=== PATIENT | female | born 1985 | race Caucasian/White ===

== ENCOUNTER 2024-03-23 11:13 | Inpatient (IN) | payer SELFPAY ==
[2024-03-23 11:27] VITALS: BMI 28.3
[2024-03-23 11:40] LABS: Basophils # 0.1 10^3/uL (0.0-0.1); Basophils % 0.8 %; Eosinophils # 0.1 10^3/uL (0.0-0.8); Eosinophils % 0.9 %; Hematocrit 46.7 % (36-47); Lymphocytes # 1.5 10^3/uL (0.8-4.8); Lymphocytes % 19.1 %; Mean Corpuscular HGB Conc 33.8 g/dL (30-55); Mean Corpuscular Volume 97.5 fl (85-98); Mean Platelet Volume 9.4 fL (7.4-10.4); Monocytes # 0.7 10^3/uL (0.2-0.9); Monocytes % 9.4 %; Neutrophils # 5.26 10^3/uL (1.8-7.7); Neutrophils % 69.3 %; Nucleated Red Blood Cells % 0 %; Platelet Count 341 10^3/cmm (157-399); Red Blood Count 4.79 10^6/uL (3.85-5.65); Red Cell Distribution Width 13.4 % (12.1-15.1); White Blood Count 7.59 10^3/uL (3.29-11.43)
--- NOTE | 2024-03-23 11:42 | W.ED.PSYCHS ---
HPI - Psych General: Chief Complaint: Psychiatric Symptoms Stated Complaint: feels of committing sucide Time Seen by Provider: 03/23/24 11:17 Source: patient Mode of arrival: ambulatory Limitations: no limitations History of Present Illness: 38-year-old female who states that she has been depressed and suicidal. She has a long history depression she never required inpatient mission states she is going through a break-up though and is having severe suicidal thoughts she has been cutting her arms as well as superficial lacerations on her arms states she has a plan to slit her wrist to kill herself. Associated symptoms: Reports depression and suicidal ideation Related Data Home Medications Medication Instructions Recorded Confirmed No Known Home Medications 03/23/24 03/23/24 Allergies Allergy/AdvReac Type Severity Reaction Status Date / Time No Known Allergies Allergy Verified 05/26/23 08:37 Review of Systems Const: Denies: fever(s), chills, body aches or change in appetite ENMT: Denies: throat pain or dental pain Card: Denies: chest pain Resp: Denies: dyspnea GI: Denies: abdominal pain, nausea, vomiting or diarrhea Musc: Denies: neck pain or back pain Skin/Breast: Denies: rash Neuro: Denies: headache(s) Psych: Reports: depression and suicidal ideation [facility] PFSH: Medical History (Updated 07/06/19 @ 14:08 by Kristie Christensen [facility]) Generalized anxiety disorder Other stimulant dependence, in remission Major depressive disorder, recurrent, moderate Social History Smoking and tobacco/nicotine status: never used tobacco/nicotine Physical Exam Const: COMMON NORMALS: no acute distress, patient oriented x3 and healthy appearing HENMT: COMMON NORMALS: normocephalic and atraumatic HEAD & SCALP: normocephalic and atraumatic Eye: COMMON NORMALS: conjunctivae normal CONJUNCTIVA: Yes conjunctivae normal Neck/C-Spine: COMMON NORMALS: full ROM and supple Chest: COMMONS NORMALS: normal inspection of the chest Resp: COMMON NORMALS: normal respiratory effort Cardio: COMMON NORMALS: regular rate, regular rhythm and No murmurs present (Cardio) RATE: regular rate RHYTHM: regular rhythm Extremity: COMMON NORMALS: normal to inspection and full ROM Neuro: COMMON NORMALS: patient oriented x3, moves all extremities and no focal motor deficits Psych: COMMON NORMALS: mental status grossly normal, Normal thought process present and cooperative MOOD & AFFECT: Yes depressed mood THOUGHT PROCESS: Normal thought process present Skin: NARRATIVE SKIN EXAM: Superficial lacerations to bilateral arms Course Vital Signs: Vital signs: Vital Signs Temperature 97.7 F 03/23/24 11:44 Pulse Rate 72 03/23/24 11:44 Respiratory Rate 18 03/23/24 11:44 Blood Pressure 124/83 03/23/24 11:44 Pulse Oximetry 96 03/23/24 11:44 Oxygen Delivery Me thod Room Air 03/23/24 11:44 MDM - Psych Medical Decision Making Patient presents here with suicidal ideations I placed her on a 96-hour hold she is medically cleared spoke to the psychiatrist will admit Medical Records I reviewed the patient's medical records. Lab Data I reviewed the patient's lab results. 03/23/24 11:35 03/23/24 11:35 Laboratory Results WBC 7.59 10^3/uL (3.29-11.43) 03/23/24 11:35 RBC 4.79 10^6/uL (3.85-5.65) 03/23/24 11:35 Hgb 15.80 g/dL (11.27-16.99) 03/23/24 11:35 Hct 46.7 % (36-47) 03/23/24 11:35 MCV 97.5 fl (85-98) 03/23/24 11:35 MCH 33.0 pg (27-33) 03/23/24 11:35 MCHC 33.8 g/dL (30-55) 03/23/24 11:35 RDW 13.4 % (12.1-15.1) 03/23/24 11:35 Plt Count 341 10^3/cmm (157-399) 03/23/24 11:35 MPV 9.4 fL (7.4-10.4) 03/23/24 11:35 Neut % (Auto) 69.3 % 03/23/24 11:35 Lymph % (Auto) 19.1 % 03/23/24 11:35 [place] % (Auto) 9.4 % 03/23/24 11:35 Eos % (Auto) 0.9 % 03/23/24 11:35 Baso % (Auto) 0.8 % 03/23/24 11:35 Neut # (Auto) 5.26 10^3/uL (1.8-7.7) 03/23/24 11:35 Lymph # (Auto) 1.5 10^3/uL (0.8-4.8) 03/23/24 11:35 [place] # (Auto) 0.7 10^3/uL (0.2-0.9) 03/23/24 11:35 Eos # (Auto) 0.1 10^3/uL (0.0-0.8) 03/23/24 11:35 Baso # (Auto) 0.1 10^3/uL (0.0-0.1) 03/23/24 11:35 Nucleated RBC % (auto) 0 % 03/23/24 11:35 Nucleated RBCs # 0.0 /100WBC 03/23/24 11:35 Sodium 139 mmol/L (136-145) 03/23/24 11:35 Potassium 3.8 mmol/L (3.5-5.1) 03/23/24 11:35 Chloride 107 mmol/L (98-107) 03/23/24 11:35 Carbon Dioxide 19 mmol/L (22-29) L 03/23/24 11:35 Anion Gap 16.8 (5-19) 03/23/24 11:35 BUN 16 mg/dL (6-20) 03/23/24 11:35 Creatinine 0.9 mg/dL (0.5-0.9) 03/23/24 11:35 GFR Calculation 70.1 mL/min (90-130) L 03/23/24 11:35 Glucose 104 mg/dL (65-115) 03/23/24 11:35 Calculated Osmolality 289 mOsm/kg (285-295) 03/23/24 11:35 Calcium 9.3 mg/dL (8.5-10.5) 03/23/24 11:35 Total Bilirubin 0.3 mg/dL (0.15-1.2) 03/23/24 11:35 AST 21 U/L (0-32) 03/23/24 11:35 ALT 20 U/L (0-33) 03/23/24 11:35 Alkaline Phosphatase 120 U/L (35-105) H 03/23/24 11:35 Total Protein 7.4 g/dL (6.6-8.7) 03/23/24 11:35 Albumin 4.3 g/dL (3.5-5.2) 03/23/24 11:35 Globulin 3.1 g/dL (1.3-4.6) 03/23/24 11:35 TSH 1.24 uIU/mL (0.27-4.20) 03/23/24 11:35 HCG, Qual Negative (Negative) 03/23/24 11:52 Salicylates < 0.3 mg/dL (3-10) L 03/23/24 11:35 Urine Opiates Screen Negative ng/mL (Negative) 03/23/24 11:52 Acetaminophen < 5.0 ug/mL (10-30) L 03/23/24 11:35 Ur Barbiturates Screen Negative ng/mL (Negative) 03/23/24 11:52 Ur Phencyclidine Scrn Negative ng/mL (Negative) 03/23/24 11:52 Ur Amphetamines Screen Positive ng/mL (Negative) H 03/23/24 11:52 U Benzodiazepines Scrn Negative ng/mL (Negative) 03/23/24 11:52 Urine Cocaine Screen Negative ng/mL (Negative) 03/23/24 11:52 U Marijuana (THC) Screen Positive ng/mL (Negative) H 03/23/24 11:52 Ethyl Alcohol 14 mg/dL (0-10) H 03/23/24 11:35 Coronavirus (PCR) Negative (Negative) 03/23/24 12:28 Influenza A (PCR) Negative (Negative) 03/23/24 12:28 Influenza Type B (PCR) Negative (Negative) 03/23/24 12:28 RSV (PCR) Negative (Negative) 03/23/24 12:28 No radiology studies performed this visit EKG Data EKG 1: I personally reviewed and interpreted this EKG as follows: EKG interpretation date: 03/23/24 EKG interpretation time: 14:18 Interpretation: nsr hr [address] elevation qrs 86 qtc 414 Discharge Plan Discharge Condition: Stable Prescriptions: No Action No Known Home Medications Referrals: Savannah Cárdenas MD [Primary Care Provider] - Coding Level of Care Code ED 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
[2024-03-23 11:44] VITALS: BP 124/83; PULSE 72; RESP 18; TEMP 36.5; O2SAT 96
[2024-03-23 11:59] LABS: Alanine Aminotransferase 20 U/L (0-33); Albumin Level 4.3 g/dL (3.5-5.2); Alcohol Level 14 mg/dL (0-10); Alkaline Phosphatase 120 U/L (35-105); Anion Gap 16.8 (5-19); Aspartate Amino Transferase 21 U/L (0-32); Blood Urea Nitrogen 16 mg/dL (6-20); Calcium 9.3 mg/dL (8.5-10.5); Carbon Dioxide 19 mmol/L (22-29); Chloride 107 mmol/L (98-107); Creatinine Clr Calc Pharmacy 83.9668; Globulin 3.1 g/dL (1.3-4.6); Glomerular Filtration Rate 70.1 mL/min (90-130); Glucose 104 mg/dL (65-115); Osmolality Calculated 289 mOsm/kg (285-295); Potassium 3.8 mmol/L (3.5-5.1); Sodium 139 mmol/L (136-145); Total Bilirubin 0.3 mg/dL (0.15-1.2); Total Protein 7.4 g/dL (6.6-8.7)
[2024-03-23 12:00] LABS: Salicylate < 0.3 mg/dL (3-10)
[2024-03-23 12:01] LABS: Acetaminophen < 5.0 ug/mL (10-30)
[2024-03-23 12:07] LABS: HCG Qualitative Urine. Negative (Negative)
--- NOTE | 2024-03-23 12:11 | ECG_ITS ---
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 Measurements Intervals Drury Rate: 75 P: 269 MA: 105 QRS: 29 QRSD: 86 T: 36 QT: 385 QTc: 432 Interpretive Statements ECTOPIC ATRIAL RHYTHM No previous ECG available for comparison Electronically Signed On 03-23-2024 18:15:31 CDT by Blaise Smalls M.D. [id number]
[2024-03-23 12:39] LABS: Amphetamines Screen Urine Positive (Negative); Barbiturates Screen Urine Negative (Negative); Benzodiazepines Screen Urine Negative (Negative); Cocaine Screen Urine Negative (Negative); Opiate Screen Urine Negative (Negative); PCP Screen Urine Negative (Negative); THC Screen Urine Positive (Negative)
[2024-03-23 12:59] LABS: Thyroid Stimulating Hormone 1.24 uIU/mL (0.27-4.20)
[2024-03-23 14:14] LABS: Covid PCR NEGATIVE (Negative); Influenza A NEGATIVE (Negative); Influenza B NEGATIVE (Negative); Respiratory Syncytial Virus Ce NEGATIVE (Negative)
--- NOTE | 2024-03-23 14:22 | PC.NURSE ---
96 hour hold rights read and reviewed with patient. Patient verbalized understandings. Copy of rights given to patient.
[2024-03-23 18:41] VITALS: BP 118/80; PULSE 70; RESP 16; O2SAT 97
[2024-03-23 18:50] VITALS: BP 118/82; PULSE 71; RESP 18; TEMP 36.9; O2SAT 99
[2024-03-23] MEDS: hyDROXYzine 25 mg Capsule 50 MG PO (21:13)
[2024-03-23] MEDS: trazodone 50 mg Tablet PO (21:13)
[2024-03-23 23:51] VITALS: BP 95/58; PULSE 88; RESP 16; TEMP 36.7; O2SAT 95
[2024-03-24 04:00] VITALS: BP 99/62; PULSE 83; RESP 18; TEMP 36.5; O2SAT 98
[2024-03-24 07:52] VITALS: BP 97/65; PULSE 77; RESP 16; TEMP 36.4; O2SAT 96
--- NOTE | 2024-03-24 08:08 | PC.NURSE ---
Patient denies avh and si/hi. She states she doesn't feel as depressed this morning because she has been keeping herself busy. She says she has been diagnosed with ocd and that she has taken paxil in the past, which she feels worked well for her. Patient denies any pain and says she slept well, but is a bit groggy from the trazodone she was administered last night. Calm and cooperative with assessment.
[2024-03-24] MEDS: folic acid 1 mg Tablet PO (09:23)
[2024-03-24] MEDS: multivitamin therapeutic Tablet 1 TAB PO (09:23)
[2024-03-24] MEDS: thiamine 100 mg Tablet PO (09:23)
[2024-03-24 11:31] VITALS: BP 110/74; PULSE 82; RESP 16; TEMP 36.6; O2SAT 93
[2024-03-24 16:00] VITALS: BP 125/76; PULSE 76; RESP 16; TEMP 36.6; O2SAT 99
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
[2024-03-24 20:00] VITALS: BP 123/83; PULSE 82; RESP 17; TEMP 36.7; O2SAT 98
[2024-03-24] MEDS: neomycin-poly-bacitracin oint 28 gm 1 APPLIC TOPICAL (21:56)
[2024-03-25] VITALS: BP 112/81; PULSE 82; RESP 17; TEMP 36.4; O2SAT 96
[2024-03-25 04:00] VITALS: BP 127/84; PULSE 69; RESP 16; TEMP 36.6; O2SAT 97
[2024-03-25 07:22] VITALS: BP 109/72; PULSE 64; RESP 16; TEMP 36.6; O2SAT 96
[2024-03-25] MEDS: folic acid 1 mg Tablet PO (09:52)
[2024-03-25] MEDS: multivitamin therapeutic Tablet 1 TAB PO (09:52)
[2024-03-25] MEDS: thiamine 100 mg Tablet PO (09:52)
[2024-03-25] MEDS: buPROPion XL (24 HR) 150 mg Tablet PO (09:52)
[2024-03-25] MEDS: sertraline 50 mg Tablet PO (09:52)
[2024-03-25 10:51] VITALS: BP 105/75; PULSE 79; RESP 16; TEMP 36.6; O2SAT 96
--- NOTE | 2024-03-25 11:52 | P.NPUPN_ITS ---
Subjective NPU 2 Subjective: Patient presented today reporting that she is doing okay. She was open to the idea of restarting her medications that she had been taking with her provider at [facility] until she lost her job and went to a new job and did not go back for her follow-up appointment. We discussed the risks, benefits and alternatives of restarting Wellbutrin XL and Zoloft and she understood and agreed to proceed as is documented in this note. Mental Status Exam 2 MSE Comments: This is an overweight versus obese white female with hospital scrubs on with limited grooming and eye contact.? Notable scratches on both forearms she reports were self-inflicted. No abnormal movements except for psychomotor retardation.? Mostly cooperative with exam in mild to moderate distress.? Speech was decreased rate and volume. Mood described as I have been depressed and overwhelmed, affect mostly congruent. Thought process organized, thought content: Patient denied suicidal or homicidal ideation, there were no delusions reported or noted, she denied auditory or visual hallucinations. ?They also denied experiencing hallucinations not associated with drug use. However, they reported increased paranoia when using methamphetamine. The patient described their mood as good and denied feeling paranoid or experiencing hallucinations during the consultation. Attention and concentration were mostly intact and memory appeared mostly reliable, but none were formally tested.? She is alert and oriented x 3.? Insight and judgment limited, impulse control is limited versus impaired.? Vitals/I&O/Wt Last Vital Signs Temp 97.9 F 03/25/24 10:51 Pulse 79 03/25/24 10:51 Resp 16 03/25/24 10:51 BP 105/75 03/25/24 10:51 Pulse Ox 96 03/25/24 10:51 O2 Del Method Room Air 03/25/24 10:51 Data NPU 03/23/24 11:35 03/23/24 11:35 A&P Assessment and plan (1) Major depressive disorder, recurrent, moderate: (2) Generalized anxiety disorder: (3) Methamphetamine use disorder, moderate, dependence: (4) Cannabis use disorder: (5) PTSD (post-traumatic stress disorder): Plan This is a 38-year-old white female with a long history outpatient mental health treatment at [facility] going back 15 years with no inpatient services who reports being off of her medication for the past 5 months or so with some really challenging times. The patient has a history of depression, anxiety, and OCD, which have been exacerbated by recent discontinuation of pharmacotherapy and substance use. They also have a history of self-harming behavior, which has recently intensified. The patient's social circumstances are somewhat unstable, with recent alterations in residential status and occupational status. 1.? Patient restarted Wellbutrin XL 150 mg p.o. daily and Zoloft 50 mg p.o. daily this morning. 2.? Continue every 15 minute checks for safety. 3.? Encourage individual, group and milieu therapies. 4.? We will reach out to [facility] provider. 5. Get collateral information. 6. Encourage sober living treatment after discharge at the highest level care to which she is willing to commit. Involuntary Hold Information 2 96 Hour Hold: 96 Hour Involuntary Admission: Yes 96 Hour Hold Ending Date: 03/29/24 96 Hour Hold Ending Time: 11:45 Attestations NPU 2 Medical Necessity Statement*: Inpatient hospitalization is medically necessary and the clinically appropriate intervention at this time. We will monitor medication to make changes as indicated. Likely length of stay 2-4 days. Coding Level of Care Code Acute Code for Chg Fwd Diagnoses Major depressive disorder, recurrent, moderate F33.1 Generalized anxiety disorder F41.1 Methamphetamine use disorder, moderate, dependence F15.20 Cannabis use disorder F12.90 PTSD (post-traumatic stress disorder) F43.10
[2024-03-25 16:00] VITALS: BP 127/71; PULSE 70; RESP 16; TEMP 36.7; O2SAT 96
[2024-03-25 20:00] VITALS: BP 138/90; PULSE 77; RESP 18; TEMP 36.6; O2SAT 97
[2024-03-25] MEDS: trazodone 50 mg Tablet PO (20:03)
[2024-03-26] VITALS: BP 121/79; PULSE 88; RESP 17; TEMP 36.6; O2SAT 94
[2024-03-26 04:00] VITALS: BP 118/78; PULSE 84; RESP 16; TEMP 36.4; O2SAT 98
[2024-03-26 07:29] VITALS: BP 124/82; PULSE 73; RESP 16; TEMP 36.4; O2SAT 95
[2024-03-26] MEDS: folic acid 1 mg Tablet PO (11:01)
[2024-03-26] MEDS: thiamine 100 mg Tablet PO (11:01)
[2024-03-26] MEDS: buPROPion XL (24 HR) 150 mg Tablet PO (11:01)
[2024-03-26] MEDS: multivitamin therapeutic Tablet 1 TAB PO (11:01)
[2024-03-26] MEDS: sertraline 50 mg Tablet PO (11:02)
[2024-03-26 11:10] VITALS: BP 108/78; PULSE 90; RESP 16; TEMP 36.4; O2SAT 95
[2024-03-26 16:00] VITALS: BP 109/69; PULSE 75; RESP 16; TEMP 36.6; O2SAT 98
--- NOTE | 2024-03-26 18:10 | P.NPUPN_ITS ---
Subjective NPU 2 Subjective: Patient presented today reporting that she is doing okay with her medications being restarted. She reports that she did get a chance to talk to her mother was returned to the area and she is having some level of optimism about things moving forward. We discussed the plan to work with the social work team tomorrow on aftercare and treatment appointments. We discussed making sure that we identified that she is actually ready to discharge when that happens. Mental Status Exam 2 MSE Comments: This is an overweight versus obese white female with hospital scrubs on with limited grooming and eye contact.? Notable scratches on both forearms she reports were self-inflicted. No abnormal movements except for psychomotor retardation.? Mostly cooperative with exam in mild to moderate distress.? Speech was decreased rate and volume. Mood described as a little better, affect mostly congruent. Thought process organized, thought content: Patient denied suicidal or homicidal ideation, there were no delusions reported or noted, she denied auditory or visual hallucinations. ?They also denied experiencing hallucinations not associated with drug use. However, they reported increased paranoia when using methamphetamine. The patient described their mood as good and denied feeling paranoid or experiencing hallucinations during the consultation. Attention and concentration were mostly intact and memory appeared mostly reliable, but none were formally tested.? She is alert and oriented x 3.? Insight and judgment limited, impulse control is limited versus impaired.? Vitals/I&O/Wt Last Vital Signs Temp 97.9 F 03/26/24 19:55 Pulse 70 03/26/24 19:55 Resp 17 03/26/24 19:55 BP 115/78 03/26/24 19:55 Pulse Ox 97 03/26/24 19:55 O2 Del Method Room Air 03/26/24 16:00 Weight last 48 hrs Weight 89.63 kg Data NPU 03/23/24 11:35 03/23/24 11:35 A&P Assessment and plan (1) Major depressive disorder, recurrent, moderate: (2) Generalized anxiety disorder: (3) Methamphetamine use disorder, moderate, dependence: (4) Cannabis use disorder: (5) PTSD (post-traumatic stress disorder): Plan This is a 38-year-old white female with a long history outpatient mental health treatment at [facility] going back 15 years with no inpatient services who reports being off of her medication for the past 5 months or so with some really challenging times. The patient has a history of depression, anxiety, and OCD, which have been exacerbated by recent discontinuation of pharmacotherapy and substance use. They also have a history of self-harming behavior, which has recently intensified. The patient's social circumstances are somewhat unstable, with recent alterations in residential status and occupational status. 1.? Patient restarted Wellbutrin XL 150 mg p.o. daily and Zoloft 50 mg p.o. daily this morning. 2.? Continue every 15 minute checks for safety. 3.? Encourage individual, group and milieu therapies. 4.? We will reach out to [facility] provider. 5. Get collateral information. 6. Encourage sober living treatment after discharge at the highest level care to which she is willing to commit. Involuntary Hold Information 2 96 Hour Hold: 96 Hour Involuntary Admission: Yes 96 Hour Hold Ending Date: 03/29/24 96 Hour Hold Ending Time: 11:45 Attestations NPU 2 Medical Necessity Statement*: Inpatient hospitalization is medically necessary and the clinically appropriate intervention at this time. We will monitor medication to make changes as indicated. Likely length of stay 1-3 days. Coding Level of Care Code Acute Code for Chg Fwd Diagnoses Major depressive disorder, recurrent, moderate F33.1 Generalized anxiety disorder F41.1 Methamphetamine use disorder, moderate, dependence F15.20 Cannabis use disorder F12.90 PTSD (post-traumatic stress disorder) F43.10
[2024-03-26] MEDS: acetaminophen 325 mg Tablet 650 MG PO (18:30)
[2024-03-26 19:55] VITALS: BP 115/78; PULSE 70; RESP 17; TEMP 36.6; O2SAT 97
[2024-03-26] MEDS: hyDROXYzine 25 mg Capsule 50 MG PO (22:39)
[2024-03-27 06:00] VITALS: BP 114/77; PULSE 72; RESP 16; TEMP 36.8; O2SAT 97
[2024-03-27] MEDS: folic acid 1 mg Tablet PO (08:51)
[2024-03-27] MEDS: buPROPion XL (24 HR) 150 mg Tablet PO (08:51)
[2024-03-27] MEDS: thiamine 100 mg Tablet PO (08:51)
[2024-03-27] MEDS: multivitamin therapeutic Tablet 1 TAB PO (08:51)
[2024-03-27] MEDS: sertraline 50 mg Tablet PO (08:51)
--- NOTE | 2024-03-27 09:16 | PC.NURSE ---
PT CURRENTLY DENIES SI/HI/AH/VH. PT CURRENTLY DENIES DEPRESSION. PT ENDORSES ANXIETY STATING THAT SHE IS WORRIED ABOUT HER MOTHER AND HER JOB. PT STATES THAT SHE KNOWS SHE NEEDED TO BE HERE BUT SHE CANNOT HELP BUT WORRY ABOUT THE OUTSIDE. PT ALSO STATED THAT SHE WOULD JUST LIKE TO BE UPDATED ABOUT THE PLAN FOR HER. THIS NURSE STATED THAT WHEN I FIND OUT INFORMATION ON THE UPDATED PLAN FOR THE PT I WILL UPDATE HER. PT APPEARED APPRECIATIVE. PT CURRENT NEEDS ARE MET AT THIS TIME.
[2024-03-27] MEDS: hyDROXYzine 25 mg Capsule 50 MG PO ×2 (13:36→19:43)
[2024-03-27 14:00] VITALS: BP 108/70; PULSE 77; RESP 17; TEMP 36.6; O2SAT 92
--- NOTE | 2024-03-27 18:40 | P.NPUPN_ITS ---
Subjective NPU 2 Subjective: Patient presented today reporting that she is doing all right. We spent some time talking about the arrangements she has with her mother was legally blind and moved in with her back in July. She reports that overall the situation is good and that her mom is supportive. She reports planning on going to [facility] outpatient to address her addiction issues and that she is working with the social work team for outpatient mental health services. She denied any side effects to the medication and we discussed a plan for discharge in the next 48 hours. Mental Status Exam 2 MSE Comments: This is an overweight versus obese white female with hospital scrubs on with limited grooming and eye contact.? Notable scratches on both forearms she reports were self-inflicted. No abnormal movements except for psychomotor retardation.? Cooperative with exam in mild distress.? Speech was more normal rate and volume. Mood described as better, affect congruent and less subdued. Thought process organized, thought content: Patient denied suicidal or homicidal ideation, there were no delusions reported or noted, she denied auditory or visual hallucinations. ?They also denied experiencing hallucinations not associated with drug use. However, they reported increased paranoia when using methamphetamine. Attention and concentration were mostly intact and memory appeared mostly reliable, but none were formally tested.? She is alert and oriented x 3.? Insight and judgment limited, impulse control is limited versus impaired.? Vitals/I&O/Wt Last Vital Signs Temp 98 F 03/27/24 14:00 Pulse 77 03/27/24 14:00 Resp 17 03/27/24 14:00 BP 108/70 03/27/24 14:00 Pulse Ox 92 03/27/24 14:00 O2 Del Method Room Air 03/26/24 16:00 Weight last 48 hrs Weight 89.63 kg Data NPU 03/23/24 11:35 03/23/24 11:35 A&P Assessment and plan (1) Major depressive disorder, recurrent, moderate: (2) Generalized anxiety disorder: (3) Methamphetamine use disorder, moderate, dependence: (4) Cannabis use disorder: (5) PTSD (post-traumatic stress disorder): Plan This is a 38-year-old white female with a long history outpatient mental health treatment at [facility] going back 15 years with no inpatient services who reports being off of her medication for the past 5 months or so with some really challenging times. The patient has a history of depression, anxiety, and OCD, which have been exacerbated by recent discontinuation of pharmacotherapy and substance use. They also have a history of self-harming behavior, which has recently intensified. The patient's social circumstances are somewhat unstable, with recent alterations in residential status and occupational status. 1.? Patient restarted Wellbutrin XL 150 mg p.o. daily and Zoloft 50 mg p.o. daily this morning. 2.? Continue every 15 minute checks for safety. 3.? Encourage individual, group and milieu therapies. 4.? We will reach out to [facility] provider. 5. Get collateral information. 6. Encourage sober living treatment after discharge at the highest level care to which she is willing to commit. Involuntary Hold Information 2 96 Hour Hold: 96 Hour Involuntary Admission: Yes 96 Hour Hold Ending Date: 03/29/24 96 Hour Hold Ending Time: 11:45 Attestations NPU 2 Medical Necessity Statement*: Inpatient hospitalization is medically necessary and the clinically appropriate intervention at this time. We will monitor medication to make changes as indicated. Likely length of stay 1-2 days. Coding Level of Care Code Acute Code for Chg Fwd Diagnoses Major depressive disorder, recurrent, moderate F33.1 Generalized anxiety disorder F41.1 Methamphetamine use disorder, moderate, dependence F15.20 Cannabis use disorder F12.90 PTSD (post-traumatic stress disorder) F43.10
[2024-03-27 19:33] VITALS: BP 128/90; PULSE 93; RESP 18; TEMP 36.3; O2SAT 96
[2024-03-27] MEDS: trazodone 50 mg Tablet PO (19:43)
[2024-03-28] MEDS: trazodone 50 mg Tablet PO (01:39)
[2024-03-28] MEDS: OLANZapine 5 mg ODT PO (01:39)
[2024-03-28 06:00] VITALS: BP 138/95; PULSE 78; RESP 16; TEMP 36.6; O2SAT 96
[2024-03-28] MEDS: buPROPion XL (24 HR) 150 mg Tablet PO (08:38)
[2024-03-28] MEDS: thiamine 100 mg Tablet PO (08:38)
[2024-03-28] MEDS: sertraline 50 mg Tablet PO (08:38)
[2024-03-28] MEDS: folic acid 1 mg Tablet PO (08:38)
[2024-03-28] MEDS: multivitamin therapeutic Tablet 1 TAB PO (08:38)
--- NOTE | 2024-03-28 09:49 | PC.NURSE ---
pt has multiple open an healing areas on bilateral arms from intentional cutting. pt states she started to cut herself in october of this year and with this last time before coming to hospital realized she needed help so that is one of the reason she came to the hospital for treatment.
--- NOTE | 2024-03-28 12:31 | W.PM.NPUDCS ---
Diagnoses at Discharge Discharge Diagnosis (1) Major depressive disorder, recurrent, moderate: Status: Acute (2) Generalized anxiety disorder: Status: Acute (3) Methamphetamine use disorder, moderate, dependence: Status: Acute (4) Cannabis use disorder: Status: Acute (5) PTSD (post-traumatic stress disorder): Status: Acute Reason for Visit Reason for Visit: feels of committing sucide Involuntary Hold Information 96 Hour Hold: 96 Hour Involuntary Admission: Yes 96 Hour Hold Ending Date: 03/29/24 96 Hour Hold Ending Time: 11:45 Mental Status Exam MSE Comments: This is an overweight versus obese white female with hospital scrubs on with limited grooming and eye contact.? Notable scratches on both forearms she reports were self-inflicted. No abnormal movements except for psychomotor retardation.? Cooperative with exam in mild distress.? Speech was more normal rate and volume. Mood described as better, affect congruent and less subdued. Thought process organized, thought content: Patient denied suicidal or homicidal ideation, there were no delusions reported or noted, she denied auditory or visual hallucinations. ?They also denied experiencing hallucinations not associated with drug use. However, they reported increased paranoia when using methamphetamine. Attention and concentration were mostly intact and memory appeared mostly reliable, but none were formally tested.? She is alert and oriented x 3.? Insight and judgment limited, impulse control is limited versus impaired.? Discharge Data Studies Completed and Pending: Laboratory Results WBC 7.59 10^3/uL (3.2 9-11.43) 03/23/24 11:35 RBC 4.79 10^6/uL (3.8 5-5.65) 03/23/24 11:35 Hgb 15.80 g/dL (11.27 -16.99) 03/23/24 11:35 Hct 46.7 % (36-47) 03/23/24 11:35 MCV 97.5 fl (85-98) 03/23/24 11:35 MCH 33.0 pg (27-33) 03/23/24 11:35 MCHC 33.8 g/dL (30-55) 03/23/24 11:35 RDW 13.4 % (12.1-15.1 ) 03/23/24 11:35 Plt Count 341 10^3/cmm (157 -399) 03/23/24 11:35 MPV 9.4 fL (7.4-10.4) 03/23/24 11:35 Neut % (Auto) 69.3 % 03/23/24 11:35 Lymph % (Auto) 19.1 % 03/23/24 11:35 [place] % (Auto) 9.4 % 03/23/24 11:35 Eos % (Auto) 0.9 % 03/23/24 11:35 Baso % (Auto) 0.8 % 03/23/24 11:35 Neut # (Auto) 5.26 10^3/uL (1.8 -7.7) 03/23/24 11:35 Lymph # (Auto) 1.5 10^3/uL (0.8- 4.8) 03/23/24 11:35 [place] # (Auto) 0.7 10^3/uL (0.2- 0.9) 03/23/24 11:35 Eos # (Auto) 0.1 10^3/uL (0.0- 0.8) 03/23/24 11:35 Baso # (Auto) 0.1 10^3/uL (0.0- 0.1) 03/23/24 11:35 Nucleated RBC % (a uto) 0 % 03/23/24 11:35 Nucleated RBCs # 0.0 /100WBC 03/23/24 11:35 Sodium 139 mmol/L (136-1 45) 03/23/24 11:35 Potassium 3.8 mmol/L (3.5-5 .1) 03/23/24 11:35 Chloride 107 mmol/L (98-10 7) 03/23/24 11:35 Carbon Dioxide 19 mmol/L (22-29) L 03/23/24 11:35 Anion Gap 16.8 (5-19) 03/23/24 11:35 BUN 16 mg/dL (6-20) 03/23/24 11:35 Creatinine 0.9 mg/dL (0.5-0. 9) 03/23/24 11:35 GFR Calculation 70.1 mL/min (90-1 30) L 03/23/24 11:35 Glucose 104 mg/dL (65-115 ) 03/23/24 11:35 Calculated Osmolal ity 289 mOsm/kg (285- 295) 03/23/24 11:35 Calcium 9.3 mg/dL (8.5-10 .5) 03/23/24 11:35 Total Bilirubin 0.3 mg/dL (0.15-1 .2) 03/23/24 11:35 AST 21 U/L (0-32) 03/23/24 11:35 ALT 20 U/L (0-33) 03/23/24 11:35 Alkaline Phosphata se 120 U/L (35-105) H 03/23/24 11:35 Total Protein 7.4 g/dL (6.6-8.7 ) 03/23/24 11:35 Albumin 4.3 g/dL (3.5-5.2 ) 03/23/24 11:35 Globulin 3.1 g/dL (1.3-4.6 ) 03/23/24 11:35 TSH 1.24 uIU/mL (0.27 -4.20) 03/23/24 11:35 HCG, Qual Negative (Negati ve) 03/23/24 11:52 Salicylates < 0.3 mg/dL (3-10 ) L 03/23/24 11:35 Urine Opiates Scre en Negative ng/mL (N egative) 03/23/24 11:52 Acetaminophen < 5.0 ug/mL (10-3 0) L 03/23/24 11:35 Ur Barbiturates Sc reen Negative ng/mL (N egative) 03/23/24 11:52 Ur Phencyclidine S crn Negative ng/mL (N egative) 03/23/24 11:52 Ur Amphetamines Sc reen Positive ng/mL (N egative) H 03/23/24 11:52 U Benzodiazepines Scrn Negative ng/mL (N egative) 03/23/24 11:52 Urine Cocaine Scre en Negative ng/mL (N egative) 03/23/24 11:52 U Marijuana (THC) Screen Positive ng/mL (N egative) H 03/23/24 11:52 Ethyl Alcohol 14 mg/dL (0-10) H 03/23/24 11:35 Coronavirus (PCR) Negative (Negati ve) 03/23/24 12:28 Influenza A (PCR) Negative (Negati ve) 03/23/24 12:28 Influenza Type B ( PCR) Negative (Negati ve) 03/23/24 12:28 RSV (PCR) Negative (Negati ve) 03/23/24 12:28 Vitals: Last Vital Signs Temp 97.8 F 03/28/24 06:00 Pulse 78 03/28/24 06:00 Resp 16 03/28/24 06:00 BP 138/95 03/28/24 06:00 Pulse Ox 96 03/28/24 06:00 O2 Del Method Room Air 03/28/24 06:00 Discharge Plan Discharge Patient Disposition: Home Condition: Stable Prescriptions: New hydroxyzine pamoate 25 mg Capsule 50 mg PO Q6H PRN (Reason: Anxiety) 30 Days Qty: 120 1RF bupropion HCl 150 mg Tablet Extended Release 24 Hr 150 mg PO DAILY 30 Days Qty: 30 1RF trazodone 50 mg Tablet 50 mg PO BEDTIME PRN (Reason: Sleep) 30 Days Qty: 30 1RF sertraline 50 mg Tablet 50 mg PO DAILY 30 Days Qty: 30 1RF thiamine mononitrate (vit B1) [Vitamin B-1 (mononitrate)] 100 mg Tablet 100 mg PO DAILY 30 Days Qty: 30 2RF No Action No Known Home Medications Discharge Orders: Discharge Order (Routine); Ordered 03/28/24 Ordered By: Al Lim Referrals: [facility] [Outside] Savannah Cárdenas MD [Primary Care Provider] - Discharge Diet: Regular Discharge Activity: Resume usual activity Patient Instructions: Opioid Safety Discharge Attestations NPU Time Spent in Discharge Care*: less than 30 min Specific Discharge Activities: Specific discharge activities: educating patient, discussing with trimming caser/social workers/dc planners, documenting/other paperwork and evaluating patient/reviewing data Coding Level of Care Code Acute Code for Chg Fwd Diagnoses Major depressive disorder, recurrent, moderate F33.1 Generalized anxiety disorder F41.1 Methamphetamine use disorder, moderate, dependence F15.20 Cannabis use disorder F12.90 PTSD (post-traumatic stress disorder) F43.10
[2024-03-28 12:42] VITALS: BP 138/95; PULSE 78; RESP 16; TEMP 36.6; O2SAT 96
[2024-03-28 14:29] VITALS: BP 158/74; PULSE 88; RESP 16; TEMP 37; O2SAT 99
== END 2024-03-28 14:39 | disposition home or self-care (01) | DRG 885 ==
LOC: ER 16:22 → NP 18:23
PROVIDERS: Admitting Provider Psychiatry & Neurology Psychiatry; Emergency Provider Emergency Medicine; PCP Family Medicine; Visit Provider Psychiatry & Neurology Psychiatry
DX: F33.1 Major depressive disorder, recurrent, moderate (principal); F15.20 Other stimulant dependence, uncomplicated; R45.851 Suicidal ideations; F41.1 Generalized anxiety disorder; F43.10 Post-traumatic stress disorder, unspecified; S50.812A Abrasion of left forearm, initial encounter; S50.811A Abrasion of right forearm, initial encounter; Y33.XXXA Other specified events, undetermined intent, initial encounter; E66.9 Obesity, unspecified; Z68.33 Body mass index [BMI] 33.0-33.9, adult
CPT/HCPCS: 0241U; 36415; 80053; 80306; 80307; 81025; 84443; 85025; 93005; 97150; 97165; 99285